=== PATIENT | male | born 1975 | race Caucasian/White ===

== ENCOUNTER 2018-08-07 11:26 | Outpatient (CLI) | payer OTHER | END 2018-08-07 17:00 | disposition home or self-care (01) | LOC: RAD 11:26 | DX: S93.524A Sprain of metatarsophalangeal joint of right lesser toe(s), initial encounter (principal) ==

== ENCOUNTER 2022-10-22 15:51 | Emergency (ER) | payer OTHER ==
[~2022-10-22] VITALS: Ht 165.1 cm; Wt 75.7 kg
== END 2022-10-22 18:17 | disposition home or self-care (01) ==
LOC: ER 15:51
DX: R30.0 Dysuria (principal)